=== PATIENT | female | born 1975 | race Caucasian/White ===

== ENCOUNTER 2016-10-26 19:43 | Emergency (ER) | payer MEDICAID ==
[2016-10-26] MEDS ORDERED: DEXAMETHASONE 10 MG/ML VIAL PO STA (21:19)
[2016-10-26] MEDS ORDERED: KETOROLAC 60 MG/2 ML VIAL IM STA (21:19)
[2016-10-26] MEDS ORDERED: cefTRIAXone 1 GM VIAL IM STA (21:19)
[2016-10-26] MEDS ORDERED: CHERRY SYRUP 10 ML UDC PO ONE (21:25)
[2016-10-26] MEDS ORDERED: KETOROLAC 60 MG/2 ML VIAL ONE (21:25)
[2016-10-26] MEDS ORDERED: DEXAMETHASONE 10 MG/ML VIAL ONE (21:25)
[2016-10-26] MEDS ORDERED: LIDOCAINE 1% 2 ML VIAL ONE (21:25)
[2016-10-26] MEDS ORDERED: cefTRIAXone 1 GM VIAL ONE (21:25)
--- NOTE | 2016-10-26 21:33 | ED Physician Documentation ---
PD HPI HEENT - Stated complaint Stated Complaint: LT EAR PX - Chief complaint Chief Complaint: Heent - History obtained from History obtained from: Patient - History of Present Illness Timing - onset: Yesterday Timing - duration: Days (1) Timing - details: Gradual onset, Still present Location: Left ear Improves: Nothing Worsens: Everything Associated symptoms: Congestion, Rhinorrhea, Cough, Other (sore throat) Similar symptoms before: Diagnosis (OM) Recently seen: Not recently seen - Additional information Additional information: 41 y/o female developed congestion and cough and blew her nose hard and has severe pain in the left ear with hearing loss. She feels like it is about to burst. Review of Systems Constitutional: reports: Fever, Myalgias, Fatigue Eyes: denies: Decreased vision Ears: reports: Loss of hearing, Ear pain, Tinnitus/ringing Nose: reports: Rhinorrhea / runny nose, Congestion Throat: reports: Sore throat Cardiac: denies: Chest pain / pressure, Palpitations Respiratory: reports: Cough GI: denies: Vomiting PD PAST MEDICAL HISTORY - Past Medical History Past Medical History: Yes Cardiovascular: None Respiratory: None Neuro: None Endocrine/Autoimmune: None GI: None COMPUTER NUMERICAL CONTROL OPERATOR: None : None HEENT: None Psych: None Musculoskeletal: None Derm: None - Past Surgical History Past Surgical History: Yes General: Other /COMPUTER NUMERICAL CONTROL OPERATOR: Tubal ligation - Present Medications Home Medications: Ambulatory Orders Medication Instructions Recorded Confirmed Cephalexin [Keflex] 500 mg PO Q6H #28 capsule 07/03/14 07/05/14 Hydrocodone/Acetaminophen 1 - 2 each PO Q6H PRN #15 tablet 07/03/14 07/05/14 [Hydrocodon-Acetaminophen 5-325] Sulfamethoxazole/Trimethoprim 1 each PO BID #14 tablet 07/03/14 07/05/14 [Bactrim Ds Tablet] Azithromycin [Zithromax] 250 mg PO DAILY #6 tablet 10/26/16 HYDROcod/ACETAM 5/325 [[place] 5/325] 1 - 2 ea PO Q6H PRN #15 tablet 10/26/16 - Allergies Allergies/Adverse Reactions: Allergies Allergy/AdvReac Type Severity Reaction Status Date / Time promethazine HCl * Allergy Anxiety Verified 10/26/16 19:51 [From Phenergan] - Social History Does the pt smoke?: Yes Smoking Status: Current every day smoker Does the pt drink ETOH?: No Does the pt have substance abuse?: No - Immunizations Immunizations are current?: Yes - POLST Patient has POLST: No PD ED PE NORMAL - Vitals Vital signs reviewed: Yes (normal ) - General General: Well developed/nourished, Other (The patient appears to be in pain with drop board worker tone and flat affect. ) - HEENT HEENT: Atraumatic, PERRL, EOMI, Other (The left TM is markedly inflamed with distortion of the landmarks. The right is clear. The pharynx is with unilateral swelling of the left tonsil with exudate. ) - Neck Neck: Supple, no meningeal sign, No bony TTP - Cardiac Cardiac: RRR, No murmur - Respiratory Respiratory: No respiratory distress, Other (scattered wheezes ) - Abdomen Abdomen: Soft, Non tender - Back Back: No CVA TTP, No spinal TTP - Derm Derm: Normal color, Warm and dry, No rash - Extremities Extremities: No deformity, No edema - Neuro Neuro: No motor deficit, No sensory deficit - Psych Psych: Normal mood, Normal affect Results - Vitals Vitals: Vital Signs - 24 hr 10/26/16 19:47 Temperature 36.1 C L Heart Rate 71 Respiratory 18 Rate Blood Pressure 100/64 O2 Saturation 100 Oxygen O2 Source Room air PD MEDICAL DECISION MAKING - ED course Complexity details: reviewed old records, considered differential, d/w patient ED course: 41 y/o female with acute OM on the left is given decadron, rocephin and toradal. Departure - Departure Disposition: 01 Home, Self Care Clinical Impression: Otitis media Qualifiers: Otitis media type: suppurative Laterality: left Chronicity: acute Recurrence: not specified as recurrent Spontaneous tympanic membrane rupture: without spontaneous rupture Qualified Code(s): H66.002 - Acute suppurative otitis media without spontaneous rupture of ear drum, left ear Condition: Stable Instructions: ED Otitis Media Acute Adult Follow-Up: [facility] [Provider Group] Prescriptions: HYDROcod/ACETAM 5/325 [[place] 5/325] 1 - 2 ea PO Q6H PRN #15 tablet PRN Reason: Pain Azithromycin [Zithromax] 250 mg PO DAILY #6 tablet Comments: Today it appears you have a bad infection in the left middle ear. Your left tonsil is swollen as well and this should be re-examined by the ear nose and throat doctor to make certain that there is not a problem with the tonsil itself.
[2016-10-26] MEDS ORDERED: HYDROcod/ACET 5/325 Prepack 6 PO ONE ×2 (21:40→21:42)
[2016-10-26 22:07] VITALS: BP 96/57
== END 2016-10-26 22:07 | disposition home or self-care (01) ==
LOC: ED 19:43
DX: H66.002 Acute suppurative otitis media without spontaneous rupture of ear drum, left ear (principal); J35.1 Hypertrophy of tonsils; R06.2 Wheezing; F17.200 Nicotine dependence, unspecified, uncomplicated
CPT/HCPCS: 96372; 99283; A9270

== ENCOUNTER 2017-08-26 07:47 | Emergency (ER) | payer MEDICAID ==
[2017-08-26] MEDS ORDERED: KETOROLAC 60 MG/2 ML VIAL IM STA (08:16)
--- NOTE | 2017-08-26 08:19 | ED Physician Documentation ---
PD HPI TRUNK INJURY - Stated complaint Stated Complaint: GLF/RIB PX - Chief complaint Chief Complaint: General - History obtained from History obtained from: Patient - History of Present Illness Location: Left chest, Left back Type of injury: Fall Timing - onset: Today Timing - duration: Minutes Timing - details: Abrupt onset, Still present Quality: Pain, Spasm, Sharp Improved by: Rest Worsened by: Moving, Palpating Associated symtptoms: No: Weakness, Numbness, Tingling, Swelling Where injury occured: Home Similar symptoms before: Has not had sx before Recently seen: Not recently seen - Additional information Additional information: 42-year-old female on methadone has fallen in her bathroom today onto her left posterior chest against the edge of her bathtub. She has pain in the posterior ribs and she did hear a crack when she fell. She is having trouble getting a full deep breath and is having significant pain. She does need to get up to [place] by 3:00 this afternoon to get her dose of methadone. Review of Systems Constitutional: denies: Fever Eyes: denies: Decreased vision Ears: denies: Ear pain Nose: denies: Congestion Throat: denies: Sore throat Cardiac: reports: Chest pain / pressure. denies: Palpitations, Pedal edema, Calf pain Respiratory: denies: Dyspnea, Cough GI: denies: Abdominal Pain, Nausea, Vomiting : denies: Dysuria, Frequency Musculoskeletal: reports: Back pain. denies: Neck pain, Extremity pain PD PAST MEDICAL HISTORY - Past Medical History Past Medical History: No Cardiovascular: None Respiratory: None Neuro: None Endocrine/Autoimmune: None GI: None LINT CLEANER: None : None HEENT: None Psych: None Musculoskeletal: None Derm: None - Past Surgical History Past Surgical History: Yes General: Other /LINT CLEANER: Tubal ligation - Present Medications Home Medications: Ambulatory Orders Medication Instructions Recorded Confirmed Methadone HCl 120 mg PO DAILY 08/26/17 - Allergies Allergies/Adverse Reactions: Allergies Allergy/AdvReac Type Severity Reaction Status Date / Time promethazine HCl * Allergy Anxiety Verified 08/26/17 07:55 [From Phenergan] - Social History Does the pt smoke?: Yes Smoking Status: Current every day smoker Does the pt drink ETOH?: No Does the pt have substance abuse?: No - Immunizations Immunizations are current?: Yes - POLST Patient has POLST: No PD ED PE NORMAL - Vitals Vital signs reviewed: Yes (Normal) - General General: Alert and oriented X 3, Well developed/nourished, Other (The patient is lying still and appears to be in pain.) - HEENT HEENT: Atraumatic, PERRL, EOMI - Neck Neck: Supple, no meningeal sign, No bony TTP - Cardiac Cardiac: RRR, No murmur - Respiratory Respiratory: No respiratory distress, Clear bilaterally, Other (There is specific chest wall point tenderness over the posterior aspect of the chest on the left side. There is a birthmark right below where her most intense pain is at the 10th rib area) - Abdomen Abdomen: Soft, Other (There is some tenderness to the left upper quadrant that exacerbates the patient's pain.She feels is likely her constipation.) - Back Back: No spinal TTP - Derm Derm: Normal color, Warm and dry, No rash - Extremities Extremities: No deformity, No edema, No calf tenderness / cord - Neuro Neuro: Alert and oriented X 3 Eye Opening: Spontaneous Motor: Obeys Commands Verbal: Oriented GCS Score: 15 - Psych Psych: Other (Mood is helpless the affect is flat) Results - Vitals Vitals: Vital Signs - 24 hr 08/26/17 07:50 Temperature 36.3 C L Heart Rate 67 Respiratory 18 Rate Blood Pressure 125/76 O2 Saturation 100 Oxygen O2 Source Room air - Rads (name of study) L ribs with PA chest Radiology: Prelim report reviewed (Impression: Unremarkable chest and left rib radiography.), EMP read indepedently, See rad report Procedures - FAST exam (time) 0815 FAST exam: No: Free fluid RUQ, Free fluid LUQ PD MEDICAL DECISION MAKING - ED course Complexity details: reviewed old records, reviewed results, re-evaluated patient , considered differential, d/w patient, d/w family ED course: 42-year-old female on methadone has fallen in her bathroom and contused her chest wall on the left side. She does not have any evidence of intra-abdominal free fluid and she does not have abdominal pain. She does have pain to the ribs posteriorly on the left side and an x-ray of the areas without evidence of fracture or pneumothorax. She is given Toradol in the emergency department for additional pain control. She will be released so that she can make it to her destination for her methadone. Departure - Departure Disposition: 01 Home, Self Care Clinical Impression: Chest wall contusion Qualifiers: Encounter type: initial encounter Laterality: left Qualified Code(s): S20.212A - Contusion of left front wall of thorax, initial encounter Condition: Stable Instructions: ED Contusion Chest Wall Follow-Up: [facility] [Provider Group]
--- NOTE | 2017-08-26 09:03 | XRAY Report ---
EXAM: LEFT RIB RADIOGRAPHY EXAM DATE: 08/26/2017 08:47 AM. CLINICAL HISTORY: Fell has pain. COMPARISON: None. TECHNIQUE: 1 view of the chest and 2 views of the left ribs. FINDINGS: Bones: No fracture or bone lesion. Lungs: No focal opacities. No pneumothorax. No pleural effusions. Mediastinum: Heart and mediastinal contours are unremarkable. Other: None. IMPRESSION: Unremarkable chest and left rib radiography. [facility] Referring Provider Line: [phone] SITE ID: [id number]
[2017-08-26 09:20] VITALS: BP 113/69
== END 2017-08-26 09:30 | disposition home or self-care (01) ==
LOC: ED 07:47
DX: S20.212A Contusion of left front wall of thorax, initial encounter (principal); W01.198A Fall on same level from slipping, tripping and stumbling with subsequent striking against other object, initial encounter; Y93.E1 Activity, personal bathing and showering; Y92.002 Bathroom of unspecified non-institutional (private) residence as the place of occurrence of the external cause; F17.200 Nicotine dependence, unspecified, uncomplicated
CPT/HCPCS: 96372; 99283; 99284

== ENCOUNTER 2022-03-01 19:00 | Emergency (ER) | payer MEDICAID ==
--- NOTE | 2022-03-01 19:56 | ED Physician Documentation ---
PD HPI ABD PAIN - Stated complaint Stated Complaint: ABD PX, DIARRHEA - Chief complaint Chief Complaint: Abd Pain - History obtained from History obtained from: Patient - History of Present Illness Timing - onset: How many days ago (4) Timing - duration: Days (4) Timing - details: Gradual onset, Still present Quality: Cramping, Aching, Pain Location: Periumbilical, Other (lower abd more) Radiation: No: Lower back Improved by: BM (having loose to wateryu stools several daily for the 4 days. Malodorous and brown. No melena.). No: Eating Worsened by: Eating Associated symptoms: Nausea, Diarrhea, Loss of appetite. No: Fever, Vomiting, Constipation, Melena, Near syncope / syncope Similar symptoms before: Has not had sx before Recently seen: Not recently seen Review of Systems Constitutional: reports: Myalgias. denies: Fever Nose: denies: Rhinorrhea / runny nose, Congestion Throat: denies: Sore throat Cardiac: denies: Chest pain / pressure, Palpitations Respiratory: reports: Dyspnea. denies: Cough GI: reports: Abdominal Pain, Nausea, Diarrhea. denies: Abdominal Swelling, Vomiting, Constipation, Bloody / black stool : denies: Dysuria, Frequency Musculoskeletal: denies: Back pain Neurologic: reports: Generalized weakness. denies: Focal weakness, Numbness, Difficulty speaking PD PAST MEDICAL HISTORY - Past Medical History Cardiovascular: None Respiratory: None Endocrine/Autoimmune: None GI: None HR SPECIALIST: None : None HEENT: None Psych: None Musculoskeletal: None Derm: None - Past Surgical History Past Surgical History: Yes General: Other /HR SPECIALIST: Tubal ligation - Present Medications Home Medications: Ambulatory Orders Medication Instructions Recorded Confirmed Methadone HCl 130 mg PO DAILY 08/26/17 03/01/22 Amox/Clav 875/125 [Augmentin] 1 each PO Q12H #10 tablet 03/01/22 Dicyclomine [Bentyl] 10 mg PO QID PRN #16 cap 03/01/22 Diphenoxylate/Atropine [Lomotil] 1 each PO QID PRN #12 tablet 03/01/22 Ondansetron Odt [Zofran] 4 mg TL Q6H PRN #10 tablet 03/01/22 - Allergies Allergies/Adverse Reactions: Allergies Allergy/AdvReac Type Severity Reaction Status Date / Time buprenorphine Allergy Anaphylaxis Verified 03/01/22 19:09 promethazine HCl * Allergy Anxiety Verified 08/26/17 07:55 [From Phenergan] - Social History Does the pt smoke?: Yes Smoking Status: Current every day smoker Does the pt drink ETOH?: No Does the pt have substance abuse?: No - Immunizations Immunizations are current?: Yes - POLST Patient has POLST: No PD ED PE NORMAL - Vitals Vital signs reviewed: Yes - General General: Alert and oriented X 3, No acute distress, Well developed/nourished - Neck Neck: Supple, no meningeal sign, No adenopathy - Cardiac Cardiac: RRR, No murmur - Respiratory Respiratory: Clear bilaterally - Abdomen Abdomen: Normal bowel sounds, Soft, Non distended, No organomegaly, Other (tender mid to lower abd both left and right. No percussion nor rebound tenderness. ) - Female Female : Deferred - Rectal Rectal: Deferred - Back Back: No CVA TTP - Derm Derm: Normal color, Warm and dry - Extremities Extremities: No edema, No calf tenderness / cord - Neuro Neuro: Alert and oriented X 3, No motor deficit, No sensory deficit Results - Vitals Vitals: Vital Signs - 24 hr 03/01/22 03/01/22 03/01/22 19:05 21:28 22:44 Temperature 36.0 C L Heart Rate 76 89 75 Respiratory 16 18 16 Rate Blood Pressure 100/61 115/61 97/64 O2 Saturation 98 96 99 Oxygen O2 Source Room air - Labs Labs: Microbiology 03/01/22 20:16 Urine Culture - Final Urine,Clean Catch No growth Laboratory Tests 03/01/22 03/01/22 03/01/22 19:48 19:48 20:16 WBC 15.9 H RBC 3.99 L Hgb 12.0 Hct 35.8 L MCV 89.7 MCH 30.1 MCHC 33.5 RDW 12.5 Plt Count 194 MPV 9.2 Neut # (Auto) 12.2 H Lymph # (Auto) 1.8 Leon # (Auto) 1.4 H Eos # (Auto) 0.5 Baso # (Auto) 0.1 Absolute Nucleated RBC 0.00 Nucleated RBC % 0.0 Sodium 133 L Potassium 3.6 Chloride 97 L Carbon Dioxide 29 Anion Gap 7.0 BUN 12 Creatinine 0.7 Estimated GFR (MDRD) 91 Glucose 98 Calcium 8.5 Total Bilirubin 0.6 AST 17 ALT 11 Alkaline Phosphatase 75 Total Protein 6.9 Albumin 3.1 L Globulin 3.8 Albumin/Globulin Ratio 0.8 L Lipase 22 Urine Color RED/BLOODY Urine Clarity CLOUDY Urine pH 6.0 Ur Specific [place] >=1.030 H Urine Protein 30 H Urine Glucose (UA) NEGATIVE Urine Ketones TRACE Urine Occult Blood LARGE H Urine Nitrite NEGATIVE Urine Bilirubin NEGATIVE Urine Urobilinogen 0.2 (NORMAL) Ur Leukocyte Esterase TRACE H Urine RBC TNTC H Urine WBC 6-10 H Ur Squamous Epith Cells FEW Squamous Urine Bacteria Few Ur Microscopic Review INDICATED Urine Culture Comments INDICATED - Rads (name of study) abd/pelvic CT Radiology: Prelim report reviewed (patchy areas of colitis. No abscess. consider tumor instead of inflammation. Liver cysts vs mets. Suggest repeat imaging or scope.), See rad report PD MEDICAL DECISION MAKING - ED course Complexity details: reviewed results (discussed with patient and best test would be scope. stool cultures first to enssj), considered differential, d/w patient Departure - Departure Disposition: 01 Home, Self Care Clinical Impression: Abdominal pain, Colitis, Diarrhea Condition: Stable Record reviewed to determine appropriate education?: Yes Prescriptions: Amox/Clav 875/125 [Augmentin] 1 each PO Q12H #10 tablet Dicyclomine [Bentyl] 10 mg PO QID PRN #16 cap PRN Reason: Abdominal Pain Diphenoxylate/Atropine [Lomotil] 1 each PO QID PRN #12 tablet PRN Reason: Diarrhea Ondansetron Odt [Zofran] 4 mg TL Q6H PRN #10 tablet PRN Reason: Nausea / Vomiting Comments: We are sending you home with stool collection kit with the hat to go on the toilet and specimen container and Ziploc bag. Collected a sample of your diarrhea this evening or tomorrow morning and bring it with you to your appointment to the primary care tomorrow. They can tested for: C. difficile by PCR Stool culture Fecal leukocytes Meanwhile we will presume a possible infectious cause. The tests above will define better a particular germ that may need specific antibiotic testing. These could also come from an inflammatory condition such as ulcerative colitis or Crohn's disease. Subsequently your primary care will want to arrange for you to get a colonoscopy to better evaluate for other conditions in the colon. I wrote prescriptions for some Lomotil to help with the diarrhea. Continue u sual medications. Ondansetron if needed for nausea. Dicyclomine if needed for cramps and pains. For tonight you can add oxycodone to your usual medicines to help with any added cramps or pains. Your prescriptions were sent to [facility] pharmacy. Discharge Date/Time: 03/01/22 22:45
[2022-03-01 19:57] LABS: BASOPHILS # (AUTO) 0.1 10^3/uL (0.0-0.1); BASOPHILS % (AUTO) 0.4 %; EOSINOPHILS # (AUTO) 0.5 10^3/uL (0.0-0.7); EOSINOPHILS % (AUTO) 3.1 %; HCT - HEMATOCRIT 35.8 % (37.0-47.0); LYMPHOCYTES # (AUTO) 1.8 10^3/uL (1.5-3.5); MEAN CORPUSCULAR HEMOGLOBIN 30.1 pg (27.0-31.0); MEAN CORPUSCULAR HGB CONC 33.5 g/dL (32.0-36.0); MEAN CORPUSCULAR VOLUME 89.7 fL (81.0-99.0); MEAN PLATELET VOLUME 9.2 fL (7.9-10.8); MONOCYTES # (AUTO) 1.4 10^3/uL (0.0-1.0); MONOCYTES % (AUTO) 8.5 %; NEUTROPHILS # (AUTO) 12.2 10^3/uL (1.5-6.6); NEUTROPHILS % (AUTO) 76.7 %; PLT - PLATELET COUNT 194 10^3/uL (130-450); RED BLOOD COUNT 3.99 10^6/uL (4.20-5.40); RED CELL DISTRIBUTION WIDTH 12.5 % (12.0-15.0); WHITE BLOOD COUNT 15.9 x10^3/uL (4.8-10.8)
[2022-03-01 20:05] LABS: CREATININE 0.7 mg/dL (0.4-1.0); POTASSIUM 3.6 mmol/L (3.5-5.0)
[2022-03-01 20:06] LABS: ALBUMIN 3.1 g/dL (3.2-5.5); ALBUMIN/GLOBULIN RATIO 0.8 (1.0-2.2); BILIRUBIN,TOTAL 0.6 mg/dL (0.2-1.0); CALCIUM 8.5 mg/dL (8.5-10.3); TOTAL PROTEIN 6.9 g/dL (6.7-8.2)
[2022-03-01] MEDS ORDERED: DIPHENOX/ATROPINE 2.5/0.025 MG TABLET PO STA (20:08)
[2022-03-01] MEDS ORDERED: KETOROLAC 15 MG/ML VIAL IVP STA (20:08)
[2022-03-01] MEDS ORDERED: SODIUM CHLORIDE 0.9% 1,000 ML IV STA (20:08)
[2022-03-01] MEDS ORDERED: ONDANSETRON 4 MG/2 ML VIAL IVP STA (20:08)
[2022-03-01] MEDS ORDERED: HYDROmorphone 1 MG/ML CARPUJECT IVP STA (20:09)
[2022-03-01 20:47] LABS: BILIRUBIN,URINE NEGATIVE (NEGATIVE); GLUCOSE, URINE (UA) NEGATIVE (NEGATIVE); KETONES,URINE (UA) TRACE mg/dL (NEGATIVE); LEUKOCYTE ESTERASE, URINE TRACE (NEGATIVE); NITRITE,URINE NEGATIVE (NEGATIVE); OCCULT BLOOD,URINE LARGE (NEGATIVE); PROTEIN,URINE 30 mg/dL (NEGATIVE); UROBILINOGEN,URINE 0.2 (NORMAL) E.U./dL (NORMAL)
[2022-03-01 20:53] LABS: BACTERIA,URINE Few /HPF (None Seen); CLARITY,URINE CLOUDY (CLEAR); RBC,URINE TNTC /HPF (0-5); SQUAMOUS EPITHELIAL CELL,UR FEW Squamous (<= Few)
--- NOTE | 2022-03-01 21:54 | CT Report ---
PROCEDURE: Abdomen/Pelvis WO INDICATIONS: diffuse abd pain/diarrhea 4days TECHNIQUE: Noncontrast 5 mm thick sections acquired from the diaphragms to the symphysis. 5 mm coronal and sagi ttal reformats were then performed. For radiation dose reduction, the following was used: automated exposure control, adjustment of mA and/or kV according to patient size. COMPARISON: None. FINDINGS: Image quality: Excellent. Lung bases:There is minimal dependent atelectasis. Heart: Heart is normal in size. ABDOMEN: Liver:Noncontrast evaluation of the liver demonstrates at least 4 oval hypoattenuating foci measurin g up to 1.0 cm which are too small to characterize. Gallbladder: Within normal limits without calcified gallstones. Biliary ducts: No biliary ductal dilatation. Pancreas: Unremarkable. Spleen: Normal in size. Adrenal Glands: No adrenal nodules. Kidneys and Ureters: No hydronephrosis. Stomach and Bowel: Stomach and small bowel loops are normal in caliber and wall thickness. No eviden ce of appendicitis. There is segmental colonic wall thickening involving the distal transverse, desce nding, and sigmoid colon with associated mild pericolonic fat stranding consistent with a colitis. Mo re prominent wall thickening is demonstrated within the distal transverse colon with suspected associ ated luminal narrowing. Peritoneum: No abnormal intraperitoneal fluid. No free air. Ventral Wall: No hernia. Abdominal Nodes: No retroperitoneal or mesenteric adenopathy by size criteria. Vessels: Aorta and inferior vena cava are normal in size. PELVIS: Pelvic Organs: Unremarkable. Bladder:The urinary bladder is nondistended. Pelvic Nodes: No enlarged lymph nodes. Miscellaneous: No inguinal hernias are seen. Bones: Visualized osseous structures demonstrate no suspicious focal lesions. IMPRESSION: 1. Segmental colonic wall thickening in the distal colon beginning in the mid transverse colon as lew cribed consistent with a colitis, likely infectious or inflammatory in etiology. However, given the g reater degree of wall thickening in the distal transverse colon, an associated colonic mass cannot be excluded. Recommend follow-up with colonoscopy when clinically feasible. 2. Multiple small hypoattenuating foci in the liver are too small to characterize and may represent c ysts. However, if a colonic mass is subsequently identified, recommend further evaluation with a live r protocol MRI or CT to exclude mass lesions. Reviewed by: Jonnie Bishop MD on 03/01/2022 9:53 PM PDT Approved by: Jonnie Bishop MD on 03/01/2022 9:53 PM PDT Station ID: [id number]
[2022-03-01] MEDS ORDERED: oxyCODONE/ACET 5/325 Prepack 4 PO STA (22:16)
[2022-03-01 22:45] VITALS: BP 97/64
== END 2022-03-01 22:45 | disposition home or self-care (01) ==
LOC: ED 19:00
DX: K52.9 Noninfective gastroenteritis and colitis, unspecified (principal); F17.200 Nicotine dependence, unspecified, uncomplicated
CPT/HCPCS: 36415; 74176; 80053; 81001; 83690; 85025; 87086; 96374; 96375; 99284; A9270; J1170; 81003

== ENCOUNTER 2023-03-22 18:06 | Emergency (ER) | payer MEDICAID ==
--- NOTE | 2023-03-22 18:39 | XRAY Report ---
PROCEDURE: Chest 1 View X-Ray INDICATIONS: Chest pain TECHNIQUE: One view of the chest was acquired. COMPARISON: 08/26/2017 FINDINGS: Surgical changes and devices: None. Lungs and pleura: No pleural effusions or pneumothorax. Lungs are clear. Mediastinum: Mediastinal contours appear normal. Heart size is normal. Bones and chest wall: No suspicious bony lesions. Overlying soft tissues appear unremarkable. IMPRESSION: No acute process. Reviewed by: Massiel Torres MD on 03/22/2023 6:38 PM PDT Approved by: Massiel Torres MD on 03/22/2023 6:38 PM PDT Station ID: [id number]
--- NOTE | 2023-03-22 18:43 | ED Physician Documentation ---
History of Present Illness - Stated complaint Stated Complaint: SOA/LT SHOULDER PX - Chief complaint Chief Complaint: General - History obtained from History obtained from: Patient - Additonal information Additional information: 47-year-old woman with history of tobacco use had what sounds like a viral URI few days ago with nasal congestion mostly. That is resolved but has developed pleuritic left-sided chest pain worse with deep breathing and motion of the left arm with shortness of breath. She does not have a cough but notes that she feels like she could not cough if she wanted to because the pain would be bad enough. No hemoptysis. No pedal edema or calf pain. She has had similar pains in her chest before but they always been fleeting, this has been going on for about 2 days now. PD PAST MEDICAL HISTORY - Past Medical History Cardiovascular: None Respiratory: None Endocrine/Autoimmune: None GI: None SIDEROGRAPHER: None : None HEENT: None Psych: None Musculoskeletal: None Derm: None - Past Surgical History Past Surgical History: Yes General: Other /SIDEROGRAPHER: Tubal ligation - Present Medications Home Medications: Ambulatory Orders Medication Instructions Recorded Confirmed Methadone HCl 130 mg PO DAILY 08/26/17 03/22/23 - Allergies Allergies/Adverse Reactions: Allergies Allergy/AdvReac Type Severity Reaction Status Date / Time buprenorphine Allergy Anaphylaxis Verified 03/01/22 19:09 promethazine HCl * Allergy Anxiety Verified 08/26/17 07:55 [From Phenergan] - Social History Does the pt smoke?: Yes Smoking Status: Current every day smoker Does the pt drink ETOH?: No Does the pt have substance abuse?: No - Immunizations Immunizations are current?: Yes - POLST Patient has POLST: No PD ED PE NORMAL - Vitals Vital signs reviewed: Yes - General General: Alert and oriented X 3, No acute distress - HEENT HEENT: PERRL, EOMI - Neck Neck: Supple, no meningeal sign, No bony TTP - Cardiac Cardiac: No murmur, Other (Mild resting tachycardia) - Respiratory Respiratory: No respiratory distress, Clear bilaterally - Abdomen Abdomen: Non tender - Extremities Extremities: No edema, No calf tenderness / cord - Neuro Neuro: Alert and oriented X 3, Normal speech Results - Vitals Vitals: Vital Signs - 24 hr 03/22/23 03/22/23 03/22/23 18:17 21:40 22:50 Temperature 36.4 C L Heart Rate 95 82 79 Respiratory 16 13 13 Rate Blood Pressure 143/82 H 110/84 H 122/83 H O2 Saturation 100 100 99 03/23/23 03/23/23 00:00 00:39 Temperature Heart Rate 73 80 Respiratory 19 18 Rate Blood Pressure 117/81 H O2 Saturation 95 99 Oxygen O2 Source Room air - EKG (time done) 1813 EKG releavant findings:: EKG personally interpreted by author of this note. Relevant findings are: Rate: Rate (enter#) (103) Rhythm: Sinus tachycardia Hoyt: Normal Intervals: Normal TN QRS: Normal Ischemia: Normal ST segments - Labs Labs: Laboratory Tests 03/22/23 03/22/23 03/22/23 18:20 19:22 19:22 WBC 6.7 RBC 4.35 Hgb 12.6 Hct 39.0 MCV 89.7 MCH 29.0 MCHC 32.3 RDW 12.9 Plt Count 239 MPV 9.4 Neut # (Auto) 4.0 Lymph # (Auto) 2.1 [place] # (Auto) 0.4 Eos # (Auto) 0.1 Baso # (Auto) 0.0 Absolute Nucleated RBC 0.00 Nucleated RBC % 0.0 D-Dimer Sodium 137 Potassium 3.8 Chloride 103 Carbon Dioxide 27 Anion Gap 7.0 BUN 11 Creatinine 0.7 Estimated GFR (MDRD) 90 Glucose 104 Calcium 9.6 Total Bilirubin 0.4 AST 19 ALT 9 L Alkaline Phosphatase 79 Troponin I High Sens 2.5 Total Protein 7.7 Albumin 4.1 Globulin 3.6 Albumin/Globulin Ratio 1.1 Lipase 14 Nasal Adenovirus (PCR) NOT DETECTED Nasal B. parapertussis DNA (PCR) NOT DETECTED Nasal Coronavir 229E PCR NOT DETECTED Nasal Coronavir HKU1 PCR NOT DETECTED Nasal Coronavir NL63 PCR NOT DETECTED Nasal Coronavir OC43 PCR NOT DETECTED Nasal Enterovir/Rhinovir PCR DETECTED A Nasal Influenza B PCR NOT DETECTED Nasal Influenza A PCR NOT DETECTED Nasal Parainfluen 1 PCR NOT DETECTED Nasal Parainfluen 2 PCR NOT DETECTED Nasal Parainfluen 3 PCR NOT DETECTED Nasal Parainfluen 4 PCR NOT DETECTED Nasal RSV (PCR) NOT DETECTED Nasal B.pertussis DNA PCR NOT DETECTED Nasal C.pneumoniae (PCR) NOT DETECTED Cameron Human Metapneumo PCR NOT DETECTED Nasal M.pneumoniae (PCR) NOT DETECTED Nasal SARS-CoV-2 (PCR) NOT DETECTED 10/09/23 19:22 WBC RBC Hgb Hct MCV MCH MCHC RDW Plt Count MPV Neut # (Auto) Lymph # (Auto) [place] # (Auto) Eos # (Auto) Baso # (Auto) Absolute Nucleated RBC Nucleated RBC % D-Dimer 333.8 H Sodium Potassium Chloride Carbon Dioxide Anion Gap BUN Creatinine Estimated GFR (MDRD) Glucose Calcium Total Bilirubin AST ALT Alkaline Phosphatase Troponin I High Sens Total Protein Albumin Globulin Albumin/Globulin Ratio Lipase Nasal Adenovirus (PCR) Nasal B. parapertussis DNA (PCR) Nasal Coronavir 229E PCR Nasal Coronavir HKU1 PCR Nasal Coronavir NL63 PCR Nasal Coronavir OC43 PCR Nasal Enterovir/Rhinovir PCR Nasal Influenza B PCR Nasal Influenza A PCR Nasal Parainfluen 1 PCR Nasal Parainfluen 2 PCR Nasal Parainfluen 3 PCR Nasal Parainfluen 4 PCR Nasal RSV (PCR) Nasal B.pertussis DNA PCR Nasal C.pneumoniae (PCR) Cameron Human Metapneumo PCR Nasal M.pneumoniae (PCR) Nasal SARS-CoV-2 (PCR) - Rads (name of study) Single view chest x-ray is unremarkable Relevant Findings:: Final report received, EMP independent interpretation of test PD Medical Decision Making - ED course ED course: 47-year-old woman with pleuritic shoulder and left chest pain associate with shortness of breath. She was barely PERC positive with borderline tachycardia and a D-dimer was done which was mildly elevated. CBC, CMP, troponin, were negative. She did have a URI and [employer] respiratory panel was positive for enterovirus/rhinovirus. She will need CT angiography. She was difficult for IV access and the nurses tried several times and been unable. I personally placed a long 20-gauge IV in the left cephalic vein after ChloraPrep using real-time ultrasound guidance that flushed and angelia well. Signout to Dr Hamilton at 11p shift ch pending CTA chest. Departure - Departure Disposition: 01 Home, Self Care Clinical Impression: Pleuritic chest pain, Rhinovirus Condition: Good Record reviewed to determine appropriate education?: Yes Instructions: ED Chest Pain Pleurisy, ED Viral Syndrome Comments: You were seen today for pleuritic left-sided chest pain. A D-dimer was positive which is a screening test for blood clots and this was followed by a CT angiography test of the chest to look for blood clot. You also had symptoms of a cold and we found you to be positive for rhinovirus which is a common virus the cause of the cold. No specific treatment is necessary for that other than symptomatic [id number] treatments, rest and fluids. The CT scan of your chest does not show any evidence of blood clot. The radiologist does note some areas of haziness in both lungs at the bases. The significance of this finding is unclear, possibly related to your viral infection. IT IS VERY IMPORTANT THAT YOU FOLLOW UP WITH YOUR PRIMARY CARE PROVIDER FOR REEVALUATION OF THIS FINDING ON YOUR CT SCAN; YOU WILL LIKELY NEED ANOTHER STUDY (SUCH REPEAT CT SCAN) WITHIN A FEW MONTHS TO ENSURE THE FINDING IS NOT PROGRESSING (WHICH WOULD BE CONCERNING FOR MALIGNANCY/CANCER)). Forms: PCP List Discharge Date/Time: 03/23/23 00:39
[2023-03-22 19:23] LABS: B. PARAPERTUSSIS- RESP PCR PAN NOT DETECTED; B. PERTUSSIS- RESP PCR PANEL NOT DETECTED; C. PNEUMONIAE- RESP PCR PANEL NOT DETECTED; CORONAVIRUS 229E-RESP PCR NOT DETECTED; CORONAVIRUS HKU1-RESP PCR NOT DETECTED; CORONAVIRUS NL63-RESP PCR NOT DETECTED; CORONAVIRUS OC43-RESP PCR NOT DETECTED; HUMAN METAPNEUMOVIRUS NOT DETECTED; INFLUENZA A- RESP PCR PANEL NOT DETECTED; INFLUENZA B - RESP PCR PANEL NOT DETECTED; M. PNEUMONIAE- RESP PCR PANEL NOT DETECTED; PARAINFLUENZA VIRUS 1 NOT DETECTED; PARAINFLUENZA VIRUS 2 NOT DETECTED; PARAINFLUENZA VIRUS 3 NOT DETECTED; PARAINFLUENZA VIRUS 4 NOT DETECTED; RHINOVIRUS/ENTEROVIRUS DETECTED; RSV- RESP PCR PANEL NOT DETECTED; SARS-CoV-2 -RESP PCR PANEL NOT DETECTED
[2023-03-22 19:29] LABS: BASOPHILS % (AUTO) 0.4 %; EOSINOPHILS # (AUTO) 0.1 10^3/uL (0.0-0.7); EOSINOPHILS % (AUTO) 1.8 %; HGB - HEMOGLOBIN 12.6 g/dL (12.0-16.0); LYMPHOCYTES # (AUTO) 2.1 10^3/uL (1.5-3.5); LYMPHOCYTES % (AUTO) 31.2 %; MEAN CORPUSCULAR HGB CONC 32.3 g/dL (32.0-36.0); MEAN CORPUSCULAR VOLUME 89.7 fL (81.0-99.0); MEAN PLATELET VOLUME 9.4 fL (7.9-10.8); MONOCYTES # (AUTO) 0.4 10^3/uL (0.0-1.0); MONOCYTES % (AUTO) 6.4 %; NEUTROPHILS % (AUTO) 59.9 %; PLT - PLATELET COUNT 239 10^3/uL (130-450); RED BLOOD COUNT 4.35 10^6/uL (4.20-5.40); RED CELL DISTRIBUTION WIDTH 12.9 % (12.0-15.0); WHITE BLOOD COUNT 6.7 x10^3/uL (4.8-10.8)
[2023-03-22 19:50] LABS: TROPONIN I HIGH SENSITIVITY 2.5 ng/L (2.3-14.8)
[2023-03-22 19:52] LABS: ALBUMIN 4.1 g/dL (3.2-5.5); ALBUMIN/GLOBULIN RATIO 1.1 (1.0-2.2); BILIRUBIN,TOTAL 0.4 mg/dL (0.2-1.0); CALCIUM 9.6 mg/dL (8.5-10.3); CREATININE 0.7 mg/dL (0.6-1.3); POTASSIUM 3.8 mmol/L (3.5-4.5); TOTAL PROTEIN 7.7 g/dL (6.4-8.9)
--- NOTE | 2023-03-22 23:40 | CT Report ---
PROCEDURE: ANGIO CHEST W/WO INDICATIONS: pleuritic CP, PE protocol CONTRAST: Omni 300 80ml TECHNIQUE: After the administration of intravenous contrast, 2 mm axial images were acquired from the pulmonary apices to the posterior costophrenic angles during the arterial phase. In addition, 1 mm lung kernel and 5 mm soft tissue kernel reconstructions were performed. 3-dimensional coronal oblique maximum int ensity projection (MIP) reformats, 8 mm axial MIP, and 5 mm coronal and sagittal MPR reformats were t hen performed through the thorax. For radiation dose reduction, the following was used: automated exp osure control, adjustment of mA and/or kV according to patient size. COMPARISON: Chest radiograph from the same day FINDINGS: Image quality: Excellent. Large vessels: No filling defects within the opacified pulmonary arteries, accounting for motion and contrast timing. No evidence of acute aortic syndrome or aortic aneurysm. Lungs and pleura: Small scattered airspace opacities are seen in posterior lateral periphery of bilat eral lung garcia. No pleural effusions. No pneumothorax. No suspicious pulmonary nodules which requi re follow up. Mediastinum: Heart size is normal. No pericardial effusion. No large vessel abnormality. No mediastin al adenopathy by size criteria. Chest wall and lower neck: Thyroid is unremarkable. No axillary or supraclavicular adenopathy by size . Bones: No aggressive osseous abnormality. Upper Abdomen: Unremarkable. IMPRESSION: 1. No pulmonary embolus. 2. Scattered atelectasis versus small infiltrates in posterior and lateral periphery of bilateral jules g garcia. Follow-up CT chest in 3 months can be done to rule out underlying malignant process. No ple ural effusion or pneumothorax. Airway is patent. 3. No mediastinal or hilar lymphadenopathy. No thoracic aortic aneurysm. Reviewed by: Maximilian Luo MD on 03/22/2023 11:38 PM PDT Approved by: Maximilian Luo MD on 03/22/2023 11:38 PM PDT Station ID: [id number]
[2023-03-23 00:11] VITALS: BP 117/81
[2023-03-23 00:49] VITALS: O2SAT 99
--- NOTE | 2023-03-23 03:02 | ED Physician Documentation ---
ED Addendum - Addendum Addendum: 03/23/23 02:59 I received signout/turnover of care from Dr. Gay; please see his note for complete H&P. At the time of signout, results of CTA of the chest pending. Radiologist interpretation is no evidence of pulmonary embolism. Radiologist interpretation also includes "scattered atelectasis versus small infiltrates in the posterior and lateral periphery of bilateral lung garcia. Follow-up CT chest in 3 months can be done to rule out underlying ligament process. No pleural effusion or pneumothorax. Airway is patent." I was informed by ED RN that the patient was insistent on leaving before I was able to reevaluate her and discussed results. I did type into the discharge i nstructions the CT finding and the need for follow-up, and the IV was removed and discharge sheets printed in anticipation of imminent discharge, but before I was able to then go to the patient's bedside to review the results with her personally and the need for follow-up regarding this finding, I had to answer a phone call regarding transfer of another patient to [facility]. By the time I had finished this phone call, the patient had been given the discharge instructions and promptly left the ED. ED RN informs me that she (the RN) did review these instructions with the patient and emphasized the need for follow-up regarding the CT finding.
[2023-03-23] MEDS ORDERED: iohexoL-300 100 ML VIAL IVP ONE (04:53)
== END 2023-03-23 00:39 | disposition home or self-care (01) ==
LOC: ED 18:06
DX: B34.8 Other viral infections of unspecified site (principal); R07.89 Other chest pain; F17.200 Nicotine dependence, unspecified, uncomplicated; Z20.822 Contact with and (suspected) exposure to COVID-19
CPT/HCPCS: 36415; 71045; 71275; 80053; 83690; 84484; 85025; 85379; 87633; 93005; 99284; Q9967